=== PATIENT | female | born 1975 | race Caucasian/White ===

== ENCOUNTER 2021-02-25 10:01 | Emergency (ER) | payer OTHER ==
[~2021-02-25] VITALS: Ht 162.6 cm; Wt 69.4 kg
[2021-02-25] MEDS ORDERED: ALBU8.5H (10:13)
--- NOTE | 2021-02-25 11:29 | REP ---
INDICATION: CHEST PAIN. COMPARISON: Comparison portable chest x-ray February 25, 2021. TECHNIQUE: Portable upright AP chest radiograph. FINDINGS: The lungs are well inflated and free of infiltrate. Pleural angles are sharp. Heart size is normal. Pulmonary vasculature is not increased. EKG electrodes are seen. The lungs are hyperinflated. IMPRESSION: No active disease. <Electronically signed by Duran Curran > 02/25/21 [id number]
[2021-02-25 11:47] LABS: BASO % 0.4 % (0.0-1.0); EOS # 0.2 10^3/uL (0.0-0.5); EOS % 1.9 % (0.0-3.0); HEMATOCRIT 45.8 % (36.0-47.0); HEMOGLOBIN 15.3 g/dl (12.0-15.5); LYMPH % 22.1 % (24.0-44.0); MEAN CORPUSCULAR HEMOGLOBIN 33.3 pg (27.0-33.0); MEAN CORPUSCULAR HGB CONC 33.4 g/dl (32.0-36.5); MEAN CORPUSCULAR VOLUME 99.6 fl (80.0-96.0); MONO # 0.7 10^3/uL (0.0-0.8); MONO % 7.7 % (2.0-8.0); NEUTROPHILS # 6.3 10^3/uL (1.5-8.5); NEUTROPHILS % 67.7 % (36.0-66.0); PLATELET COUNT, AUTOMATED 340 10^3/uL (150-450); WHITE BLOOD COUNT 9.3 10^3/uL (4.0-10.0)
[2021-02-25 12:11] LABS: ALBUMIN 4.1 GM/DL (3.2-5.2); ALT/SGPT 23 U/L (12-78); BILIRUBIN,DIRECT 0.1 MG/DL (0.0-0.2); BILIRUBIN,TOTAL 0.6 MG/DL (0.2-1.0); BLOOD UREA NITROGEN 10 MG/DL (7-18); CALCIUM LEVEL 9.3 MG/DL (8.5-10.1); CARBON DIOXIDE LEVEL 27 MEQ/L (21-32); CHLORIDE LEVEL 108 MEQ/L (98-107); CREATININE FOR GFR 0.78 MG/DL (0.55-1.30); GLOMERULAR FILTRATION RATE > 60.0 (>58); GLUCOSE, FASTING 87 MG/DL (70-100); NT-PRO BNP 46 PG/ML (<125); SODIUM LEVEL 139 MEQ/L (136-145); TOTAL PROTEIN 7.2 GM/DL (6.4-8.2)
[2021-02-25 12:12] LABS: LIPASE 153 U/L (73-393); THYROID STIMULATING HORMONE 0.738 uIU/ML (0.358-3.740)
[2021-02-25 17:28] VITALS: BP 126/76
--- NOTE | 2021-02-25 18:49 | ECGEPIP ---
[facility] - ED Test Date: 2021-02-25 Pat Name: VICENTA CARRINGTON Department: Room: - Gender: Female News Writer: ELIO : 1975 Requested By: Malini Faria Order Number: [id number] Reading MD: Louie Romeo Measurements Intervals [place] Rate: 59 P: 35 LA: 142 QRS: 72 QRSD: 74 T: 53 QT: 382 QTc: 378 Interpretive Statements Sinus bradycardia Anteroseptal infarct , age undetermined NO PRIORS FOR COMPARISON Electronically Signed on 02-25-2021 18:48:52 EDT by Louie Romeo
--- NOTE | 2021-02-25 19:16 | ECGEPIP ---
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
== END 2021-02-25 17:52 | disposition home or self-care (01) ==
LOC: M ED 10:01
DX: R07.9 Chest pain, unspecified (principal); R94.31 Abnormal electrocardiogram [ECG] [EKG]; J45.909 Unspecified asthma, uncomplicated; F17.200 Nicotine dependence, unspecified, uncomplicated